=== PATIENT | female | born 1995 | race Two or more races ===

== ENCOUNTER 2023-10-24 11:21 | Observation (INO) | payer BC, MEDICAID ==
[~2023-10-24] VITALS: Ht 167.6 cm; Wt 79.4 kg
[2023-10-24] MEDS ORDERED: ACETAMINOPHEN 500 MG TAB PO ONE (12:15)
== END 2023-10-24 12:28 | disposition home or self-care (01) ==
LOC: LDRP 11:21 → UNDOADMOB 11:21 → LDRP 11:46 → UNDODISOB 12:28
PROVIDERS: ADMIT Obstetrics & Gynecology; ATTEND Obstetrics & Gynecology
DX: O26.893 Other specified pregnancy related conditions, third trimester (principal); R10.9 Unspecified abdominal pain; R51.9 Headache, unspecified; M54.9 Dorsalgia, unspecified; Z3A.28 28 weeks gestation of pregnancy; Z88.0 Allergy status to penicillin
CPT/HCPCS: 59025; 81002; 94760; G0378